=== PATIENT | female | born 1955 | race African-American/Black ===

== ENCOUNTER 2018-07-30 20:07 | Emergency (ER) | payer OTHER ==
[2018-07-30 20:43] VITALS: TEMP 97.1; BMI 35.5
--- NOTE | 2018-07-30 20:44 | PDOC ---
Attending Attestation - Resident Resident Name: Cornelia Chin - ED Attending Attestation I have performed the following: I have examined & evaluated the patient, The case was reviewed & discussed with the resident, I agree w/resident's findings & plan, Exceptions are as noted - HPI HPI: 07/30/18 21:09 63 yo F h/o CVA L sided hemiparesis, uses wheelchair, Seizure, spine arthritis She is a resident of assisted living facility for the past week She fell while trying to sit on the toilet Struck the back of her head on the left side (+) LOC No amnesia (+) urinary incontinence (+) headache (-) dizziness No chest pain, no shortness of breath, no palpitations - Physicial Exam PE: 07/30/18 21:12 GENERAL: The patient is in no acute distress. HEAD: Normal with no signs of trauma. EYES: PERRLA, EOMI, sclera anicteric, conjunctiva clear. ENT: Ears normal, nares patent, oropharynx clear without exudates. Moist mucous membranes. NECK: Normal range of motion, supple without lymphadenopathy, JVD, or masses. LUNGS: Breath sounds equal, clear to auscultation bilaterally. No wheezes, and no crackles. HEART:Regular rate and rhythm, normal S1 and S2 without murmur, rub or gallop. ABDOMEN: Soft, nontender, normoactive bowel sounds. No guarding, no rebound. No masses palpable. EXTREMITIES: Normal range of motion, no edema. No clubbing or cyanosis. No erythema, or tenderness. NEUROLOGICAL: Cranial nerves II through XII grossly intact. Normal speech. No focal neurological deficits. MUSCULOSKELETAL: Back non-tender to palpation, no CVA tenderness SKIN: Warm, Dry, normal turgor, no rashes or lesions noted. - Medical Decision Making 07/30/18 23:30 Twelve-lead EKG was performed and reviewed by me. There is normal sinus rhythm with a normal rate of 62 bpm. The axis is normal. The intervals are normal. There are no ST elevations or depressions. T wave flattening Unable to obtain labs Will do CT imaging 07/31/18 04:46 CT Cervical Spine was read CT head is STILL not read I have called Dr Gleason CT C spineNo fracture, degenerative changed CT head no acute, Chronic R MCA infarct, parietal thickening, no fracture Will discharge to home Follow up with PMD
[2018-07-30] MEDS ORDERED: morphine CARPU-JECT 4 MG/1 ML DISP.SYRIN IVPUSH ONE (21:19)
--- NOTE | 2018-07-30 21:26 | PDOC ---
History of Present Illness - General Chief Complaint: Injury Stated Complaint: FALL Time Seen by Provider: 07/30/18 20:18 History Source: Patient - History of Present Illness Initial Comments: 07/30/18 21:21 63F w/ significant hx of 8 CVA/TIAs (20 years ago) with L sided chronic neurological deficits, hx of 9 seizures, 2 comas (most recent 10 years ago), arthritis of the spine, and dislocated L shoulder (years ago) presents with a head injury s/p unwitnessed fall. Pt states she fell down after trying to sit down on her toilet at home when she lost her balance, fell and hit her head on the pipe underneath her bathroom sink. She complains of localized, non- radiating posterior head pain on the R side. She admits to losing consciousness for a couple of seconds. She woke up, and was able to use the call button to request help from an aide of the facility. Of note, she recently moved to an assisted living facility 1 week ago and has been having complaints about her toilet being too low making it difficult for her to use. Prior to fall, she denies dizziness, lightheadedness, new onset leg weakness. She says she uses a wheelchair to get around as her entire L side has no muscle strength. She also reports needing a health aide to perform ADLs. Additionally, she reports urinary incontinence s/p fall, but denies tongue biting or seizure episode. PCP: Dr. Kaiser (at [facility]), last seen 2 months ago, reports blood work done then was normal. 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 Denies recent travel. Past History - Past Medical History Allergies/Adverse Reactions: Allergies Allergy/AdvReac Type Severity Reaction Status Date / Time No Known Allergies Allergy Verified 07/30/18 20:43 Home Medications: Ambulatory Orders Acetaminophen 500 mg PO PRN PRN 07/30/18 Albuterol Sulfate Inhaler - [Ventolin Hfa Inhaler -] 2 inh PO Q6H 07/30/18 Aspirin [ASA -] 81 mg PO DAILY 07/30/18 Docusate Sodium [Colace -] 100 mg PO BID 07/30/18 Escitalopram Oxalate [Lexapro -] 20 mg PO DAILY 07/30/18 Folic Acid - 1 mg PO DAILY 07/30/18 Gabapentin [Neurontin -] 300 mg PO Q8H 07/30/18 Hydroxyzine HCl 25 mg PO DAILY 07/30/18 Propylene Glycol/Peg 400/Pf [Systane 0.3-0.4% Eye Drops] 1 each OP BID 07/30/18 Rosuvastatin [Crestor -] 10 mg PO DAILY 07/30/18 Suvorexant [Belsomra] 20 mg PO DAILY 07/30/18 Tobramycin/Dexamethasone [Tobradex Eye Drops] 5 ml OP TID 07/30/18 Tramadol HCl [Ultram] 50 mg PO BID 07/30/18 Trazodone HCl 150 mg PO BID 07/30/18 - Suicide/Smoking/Psychosocial Hx Smoking History: Never smoked Have you smoked in the past 12 months: No Information on smoking cessation initiated: No Hx Alcohol Use: No Drug/Substance Use Hx: No Review of Systems - Review of Systems Able to Perform ROS?: Yes Is the patient limited Romanian proficient: No Constitutional: No: Chills, Fever, Loss of Appetite, Weakness HEENTM: Yes: Eye Pain (L eye). No: Recent change in vision Respiratory: No: Cough, Shortness of Breath Cardiac (ROS): No: Chest Pain, Lightheadedness ABD/GI: No: Constipated, Diarrhea, Nausea, Vomiting : Yes: Incontinence. No: Dysuria, Hematuria Musculoskeletal: Yes: Back Pain (chronic). No: Neck Pain Neurological: Yes: Headache, Tingling (L side of face). No: Dizziness *Physical Exam - Vital Signs Last Vital Signs Temp Pulse Resp BP Pulse Ox 97.1 F L 82 16 151/79 98 07/30/18 20:10 07/30/18 20:10 07/30/18 20:10 07/30/18 20:10 07/30/18 20:10 - Physical Exam Comments: 07/30/18 23:00 GEN: NAD. AAOx3. Resting comfortably. HEENT: R posterior head tenderness, no visible wound seen. EOMI. GRADY. Slurred speech noted. L sided facial droop noted. Dry mucus membranes. Neck: Supple, no LAD/JVD. Good ROM. Lungs: CTA B/L. No wheezes noted. Heart: RRR. Normal S1, S2. No murmurs noted. Symmetric chest rise. Abd: Soft, NT/ND. No masses/bruits noted. +BS in all 4Q's. Ext: No peripheral edema. 2+ dorsalis pedis pulses. 0/5 muscle strength in U/L L extremities. 5/5 muscle strength in U/L R extremities. Neuro: Slurred speech. B/l facial sensation intact. Follows commands. ED Treatment Course - RADIOLOGY Radiology Studies Ordered: Category Date Time Status CERVICAL SPINE CT W/O CONTR [CT] Stat CT Scan 07/30/18 21:[address] WITHOUT CONTRAST [CT] Stat CT Scan 07/30/18 21:19 Ordered Medical Decision Making - Medical Decision Making 07/30/18 23:04 64F w/ significant pmhx of multiple CVA/TIAs, multiple seizures, 2 comas, arthritis of the spine who presents after head trauma s/p fall. -Pt has chronic L sided neurological deficits from previous CVAs, and presents with a fall after hitting head. New onset symptoms include L facial tingling and head pain at this time. Will obtain Head CT and CT of cervical spine to r/o any acute pathology from fall. CBC/CMP, cardiac profile ordered. -Percocet and IM Benadryl given for pain 07/30/18 23:08 -Pt refusing IV access at this time. Multiple attempts made to obtain blood, however unsuccessful at this time. -Await CT imaging 07/31/18 00:25 -Cervical CT (IOC) showed no acute fx. Multilevel spondylosis. Straightening of cervical lordosis, possibly due to positioning or muscle spasm. Minimal rotation C1-C2, probably positional. Stent L internal carotid artery. Small blebs and nonspecific ground glass densities upper lobes. L thyroid lobe slightly enlarged compared to right. -Pt given Morphine 4 mg IM for head pain -await Head CT results 07/31/18 02:34 Contacted [facility] regarding head CT. 07/31/18 06:30 -Head CT no acute, Chronic R MCA infarct, parietal thickening, no fracture. -DC to home, recommended follow up with PCP and continue home meds as directed. Case discussed with Dr. Downing (ED attending). Cornelia Chin DO - PGY1 *DC/Admit/Observation/Transfer Diagnosis at time of Disposition: Fall Qualifiers: Encounter type: initial encounter Qualified Code(s): W19.XXXA - Unspecified fall, initial encounter Head injury Qualifiers: Encounter type: initial encounter Qualified Code(s): S09.90XA - Unspecified injury of head, initial encounter - Discharge Dispostion Disposition: HOME Condition at time of disposition: Fair Decision to Admit order: No - Referrals Referrals: Abel Kaiser [Primary Care Provider] - - Patient Instructions Printed Discharge Instructions: How to Prevent Falls Additional Instructions: You were seen in the ED for complaints of head pain after a fall. In the ED, you were given medicine for your head pain. CT imaging was done of your head and cervical spine that did not show any acute condition. There is no acute need for hospitalization at this time. You are being discharged home. Please continue taking your home medications are prescribed. Please follow up with your primary care physician, Dr. Kaiser, within 1 week. If you experience another head injury after a fall, persistent headaches, dizziness, chest pain, shortness of breath, or new neurological symptoms, please proceed to your nearest emergency room immediately. - Post Discharge Activity
[2018-07-30] MEDS ORDERED: diphenhydrAMINE HCL 25 MG CAPSULE (FP) PO ONE (21:42)
[2018-07-30] MEDS ORDERED: morphine SULFATE 4 MG/ML VIAL IM ONE (23:32)
[2018-07-31] MEDS ORDERED: MORPHINE SULFATE 10 MG/1 ML *VIAL ONE (00:31)
[2018-07-31 06:09] VITALS: BP 142/76; PULSE 74
[2018-07-31] MEDS ORDERED: traMADol HCL 50 MG TABLET PO ONE (08:44)
[2018-07-31] MEDS ORDERED: traMADol HCL 50 MG TABLET ONE (08:45)
[2018-07-31] MEDS ORDERED: diphenhydrAMINE HCL 25 MG CAPSULE (FP) PO ONE ×2 (08:51→09:09)
--- NOTE | 2018-07-31 16:28 | EKG ---
Test Reason : Blood Pressure : / mmHG Vent. Rate : 062 BPM Atrial Rate : 068 BPM P-R Int : 150 ms QRS Dur : 074 ms QT Int : 368 ms P-R-T Axes : 060 031 071 degrees QTc Int : 373 ms SINUS RHYTHM WITH PREMATURE ATRIAL COMPLEXES NONSPECIFIC T WAVE ABNORMALITY ABNORMAL ECG NO PREVIOUS ECGS AVAILABLE Confirmed by MD Ford Edward ([id number]) on 07/31/2018 4:27:46 PM Referred By: Confirmed By:Carl Ford MD
== END 2018-07-31 09:15 | disposition home or self-care (01) ==
LOC: JER 20:07
PROC: 3E023NZ Introduction of Analgesics, Hypnotics, Sedatives into Muscle, Percutaneous Approach (ICD-10-PCS; principal; 2018-07-30)
PROC: 3E033GC Introduction of Other Therapeutic Substance into Peripheral Vein, Percutaneous Approach (ICD-10-PCS; 2018-07-30)
DX: S09.8XXA Other specified injuries of head, initial encounter (principal); R51 Headache; W18.12XA Fall from or off toilet with subsequent striking against object, initial encounter; Y93.89 Activity, other specified; Y92.091 Bathroom in other non-institutional residence as the place of occurrence of the external cause; Y99.8 Other external cause status; I69.854 Hemiplegia and hemiparesis following other cerebrovascular disease affecting left non-dominant side; G40.909 Epilepsy, unspecified, not intractable, without status epilepticus; M46.80 Other specified inflammatory spondylopathies, site unspecified; Z99.3 Dependence on wheelchair
CPT/HCPCS: 70450-TC; 72125-TC; 93005; 93010; 96372; 96374; 99283-25

== ENCOUNTER 2019-08-05 02:12 | Emergency (ER) | payer OTHER ==
[2019-08-05] MEDS ORDERED: diphenhydrAMINE HCL 25 MG CAPSULE (FP) PO ONE ×3 (03:29→04:25)
--- NOTE | 2019-08-05 03:29 | PDOC ---
History of Present Illness - General Stated Complaint: ITCHY Time Seen by Provider: 08/05/19 02:31 - History of Present Illness Initial Comments: 08/05/19 03:00 64 yo F PMH 8 CVA/TIAs (20 years ago) with L sided hemiplegia, 9 seizures, 2 comas (most recent 10 years ago, lasting two weeks each time), arthritis of the spine, and dislocated L shoulder (years ago), presenting from [facility] Living with itching. Patient reports that she took her home oxycontin and normally gets itchiness after doing so, which she treats with Benadryl 25mg. However, she did not respond today. Specifically denies CP, SOB, constipation/diarrhea, fevers/chills, GARCIA, N/V, difficulty breathing. Past History - Past Medical History Allergies/Adverse Reactions: Allergies Allergy/AdvReac Type Severity Reaction Status Date / Time acetaminophen [From Percocet] Allergy Verified 04/08/19 10:56 morphine Allergy Verified 04/08/19 10:56 oxycodone [From Percocet] Allergy Verified 04/08/19 10:56 tramadol Allergy Verified 04/08/19 10:56 Home Medications: Ambulatory Orders Acetaminophen 500 mg PO PRN PRN 07/30/18 Albuterol Sulfate Inhaler - [Ventolin HFA Inhaler -] 2 inh PO Q6H 07/30/18 Aspirin [ASA -] 81 mg PO DAILY 07/30/18 Docusate Sodium [Colace -] 100 mg PO BID 07/30/18 Escitalopram Oxalate [Lexapro -] 20 mg PO DAILY 07/30/18 Folic Acid - 1 mg PO DAILY 07/30/18 Gabapentin [Neurontin -] 300 mg PO Q8H 07/30/18 Rosuvastatin [Crestor -] 10 mg PO DAILY 07/30/18 Suvorexant [Belsomra] 20 mg PO DAILY 07/30/18 Trazodone HCl 150 mg PO BID 07/30/18 Fluticasone Prop 0.05% Nasal [Flonase -] 1 spray NS DAILY 04/08/19 Ibuprofen 600 mg PO BID 04/08/19 Lidocaine 5% Patch [Lidoderm -] 1 patch TP DAILY 04/08/19 Meclizine HCl 25 mg PO BID PRN 04/08/19 Naproxen 500 mg PO BID PRN 04/08/19 Propylene Glycol/Peg 400 [Lubricant 0.3%-0.4% Eye Drops] 15 ml OP DAILY Tizanidine HCl [Zanaflex] 4 mg PO TID 04/08/19 Triamcinolone Acetonide 5 gm DT TID 04/08/19 Amox-Tr/K Cl [Augmentin 875-125mg Tablet -] 1 tab PO BID@0800,1730 #8 tablet Cardiac Disorders: Yes (HLD) CVA: Yes (CVA/TIA (20years ago) with left sided hemiplegia.) COPD: No Seizures: Yes - Immunization History Immunization Up to Date: Yes - Psycho Social/Smoking Cessation Hx Smoking History: Never smoked Have you smoked in the past 12 months: No Hx Alcohol Use: No Drug/Substance Use Hx: No Review of Systems - Review of Systems Comments:: 08/05/19 03:00 GENERAL/CONSTITUTIONAL: No fever or chills. No weakness. HEAD, EYES, EARS, NOSE AND THROAT: No change in vision. No ear pain or discharge. No sore throat. CARDIOVASCULAR: No chest pain or shortness of breath. RESPIRATORY: No cough, wheezing, or hemoptysis. GASTROINTESTINAL: No nausea, vomiting, diarrhea or constipation. GENITOURINARY: No dysuria, frequency, or change in urination. MUSCULOSKELETAL: No joint or muscle swelling or pain. No neck or back pain. SKIN: No rash NEUROLOGIC: No headache, vertigo, loss of consciousness, or change in strength/ sensation. ENDOCRINE: No increased thirst. No abnormal weight change. HEMATOLOGIC/LYMPHATIC: No anemia, easy bleeding, or history of blood clots. ALLERGIC/IMMUNOLOGIC: No hives or skin allergy. Positive itchiness. *Physical Exam - Physical Exam Comments: 08/05/19 03:00 Gen: well-developed, well-nourished, NAD Neuro: L sided hemiplegia, AAOX4, CN II-XII intact, FTN intact, EOMI, PERRLA, SILT HEENT: atraumatic, normocephalic, dry mucous membranes Neck: trachea midline, supple CV: regular rate, regular rhythm, no murmurs, rubs, or gallops Pulm: CTA b/l, no wheezing Abd: soft, non-distended, non-tender MSK: full ROM, intact pulses Extr: no edema, no deformities Skin: warm, dry Medical Decision Making - Medical Decision Making 08/05/19 03:00 Itchiness after oxycontin use. - Benadryl 25 mg - reassess 08/05/19 06:24 Patient sleeping peacefully and snoring, denies sleeping after being woken up. States that itching feels improved, but is still present. 08/05/19 06:49 Will give IM Benadryl and dc back to [facility]. Patient amenable. Discharge - Discharge Information Problems reviewed: Yes Clinical Impression/Diagnosis: Itch Condition: Improved - Admission No - Follow up/Referral - Patient Discharge Instructions Additional Instructions: You were seen with itching after taking your Oxycontin. This improved with Benadryl. Please follow with your primary care doctor within one week. Return to the ED if you develop worsening symptoms. - Post Discharge Activity
[2019-08-05 04:00] VITALS: BP 121/61; PULSE 60; TEMP 97.8; BMI 73.7
--- NOTE | 2019-08-05 04:06 | PDOC ---
Attending Attestation - Resident Resident Name: PierceKhoa pelletier - ED Attending Attestation I have performed the following: I have examined & evaluated the patient, The case was reviewed & discussed with the resident, I agree w/resident's findings & plan, Exceptions are as noted - HPI HPI: 08/05/19 07:43 64 years old with past medical history significant for CVA TIAs 20 years ago left-sided hemiplegia seizures, arthritis dislocated shoulder presents to the emergency department with itchiness after taking OxyContin. She has had this happen before she denies any difficulty breathing lip swelling throat swelling or rash symptoms are mild persistent constant no exacerbating or alleviating factors Insert my ROS statement - Physicial Exam PE: 08/05/19 07:43 Vitals: Triage Vital signs reviewed General Appearance: No acute distress, well nourished well developed, Head: Atraumatic, Nose: Nares patent bilaterally; no nasal congestion Throat: Posterior oropharynx without erythema, mucous membranes moist, Neck: Supple; no Nucal rigidity Chest Wall: Nontender Cardiac: Regular rate and rhythym, no murmurs, no rubs, no gallops, Lungs: Clear to auscultation bilateral, good air movement bilaterally, Abdomen: Soft, non distended, normal bowel sounds, non tender to palpation Extremities: Full range of motion to all extremities, no cyanosis, clubbing, or edema Skin: Warm and dry, no rashes or lesions, no rash, no petechiae Psych: Normal mood, normal affect - Medical Decision Making 08/05/19 07:44 Well-appearing no apparent distress patient treated with Benadryl and observed for 2 to 3 hours Patient feels much better now asking to return home ambulance arrange for patient to return to her facility Findings, need for follow-up and strict return instructions discussed with patient.
== END 2019-08-05 07:30 ==
LOC: JER 02:12
PROC: 3E033GC Introduction of Other Therapeutic Substance into Peripheral Vein, Percutaneous Approach (ICD-10-PCS; principal; 2019-08-05)
PROC: 3E023GC Introduction of Other Therapeutic Substance into Muscle, Percutaneous Approach (ICD-10-PCS; 2019-08-05)
DX: L29.8 Other pruritus (principal); T40.2X5A Adverse effect of other opioids, initial encounter; Y92.098 Other place in other non-institutional residence as the place of occurrence of the external cause; G40.909 Epilepsy, unspecified, not intractable, without status epilepticus; E78.00 Pure hypercholesterolemia, unspecified; I69.854 Hemiplegia and hemiparesis following other cerebrovascular disease affecting left non-dominant side; Z88.5 Allergy status to narcotic agent; Z88.6 Allergy status to analgesic agent
CPT/HCPCS: 96372; 96374; 99281-25